=== PATIENT | female | born 1960 | race Caucasian/White ===

== ENCOUNTER 2024-11-24 11:06 | Emergency (ER) | payer OTHER ==
[2024-11-24 11:20] VITALS: RESP 18
--- NOTE | 2024-11-24 12:07 | XR ---
EXAMINATION TYPE: XR knee complete RT DATE OF EXAM: 11/24/2024 11:59 AM INDICATION: Patient age:Female; 64 years old; Reason for study: swelling; PHH. pain COMPARISON: None. TECHNIQUE: The Right knee(s) was examined in Frontal, lateral and oblique projections. FINDINGS: Post arthroplasty changes with distal femoral and proximal tibial components. Hardware morena ears intact with appropriate alignment. No periprosthetic lucency. No acute fracture or dislocation. Moderate to large size joint effusion. There is a suggested fluid fluid level. Minimal infrapatellar soft tissue swelling. IMPRESSION: 1. No acute osseous pathology. 2. Post arthroplasty changes. Hardware appears intact with appropriate alignment. 3. Moderate to large size joint effusion with fluid fluid level suggested. Could be seen with lipohem arthrosis. [facility], , 11/24/2024 12:05 PM
[2024-11-24] MEDS: KETOROLAC 15 MG/ML 1 ML VIAL IM STA (12:25)
--- NOTE | 2024-11-24 12:25 | ED ---
Extremity Problem HPI - General Chief complaint: Extremity Problem,Nontraumatic Stated complaint: right knee pain Time Seen by Provider: 11/24/24 11:35 Source: patient, family Mode of arrival: ambulatory Limitations: no limitations - History of Present Illness Initial comments: 64-year-old female presenting with chief complaint of right knee pain. Patient has a history of total knee replacement earlier this year. She is currently visiting her daughter from [place]. She was helping with chores around the house yesterday and she noticed when she sat down at the end of the day her knee was sore and swollen. Patient tried icing, elevating, taking ibuprofen but the knee continued to swell and the pain persisted. No redness. No fever. Patient denies any injury or trauma to the area. No chest pain or difficulty breathing. No numbness or tingling. - Related Data Previous Rx's Medication Instructions Recorded HYDROcodone/APAP 7.5-325MG [[place] 1 tab PO Q6HR PRN 3 Days #12 tab 11/24/24 7.5-325] Allergies Allergy/AdvReac Type Severity Reaction Status Date / Time adhesive tape Allergy Rash/Hives Verified 11/24/24 11:21 cephalexin [From Keflex] Allergy Itching Verified 11/24/24 11:21 vancomycin Allergy Rash/Hives Verified 11/24/24 11:21 Review of Systems ROS Statement: Those systems with pertinent positive or pertinent negative responses have been documented in the HPI. ROS Other: All systems not noted in ROS Statement are negative. Past Medical History Past Medical History: Diabetes Mellitus, Hyperlipidemia, Hypertension Additional Past Medical History / Comment(s): DM type 2, sleep apnea History of Any Multi-Drug Resistant Organisms: None Reported Past Surgical History: Joint Replacement Past Psychological History: No Psychological Hx Reported Smoking Status: Never smoker Past Alcohol Use History: None Reported Past Drug Use History: None Reported General Exam Limitations: no limitations General appearance: alert, in no apparent distress Head exam: Present: atraumatic, normocephalic, normal inspection Eye exam: Present: normal appearance, EOMI Neck exam: Present: normal inspection. Absent: meningismus Respiratory exam: Absent: respiratory distress Cardiovascular Exam: Present: regular rate Right Knee exam: Present: tenderness, swelling. Absent: full ROM, deformity Neurovascular tendon exam: Present: no vascular compromise Neurological exam: Present: alert, oriented X3 Psychiatric exam: Present: normal affect, normal mood Skin exam: Present: warm, dry, normal color Course Vital Signs 11/24/24 11/24/24 11:17 14:16 Temperature 98 F 98.5 F Pulse Rate 78 82 Respiratory 18 18 Rate Blood Pressure 178/80 155/84 O2 Sat by Pulse 98 95 Oximetry Medical Decision Making - Medical Decision Making Was pt. sent in by a medical professional or institution (, PA, MATCHER OPERATOR, urgent care, hospital, or custodial...) When possible be specific @ -No Did you speak to anyone other than the patient for history (EMS, parent, family, police, friend...)? What history was obtained from this source @ -Daughter Did you review nursing and triage notes (agree or disagree)? Why? @ -I reviewed and agree with nursing and triage notes Were old charts reviewed (outside hosp., previous admission, EMS record, old EKG, old radiological studies, urgent care reports/EKG's, custodial records)? Report findings @ -No old charts were reviewed Differential Diagnosis (chest pain, altered mental status, abdominal pain women, abdominal pain men, vaginal bleeding, weakness, fever, dyspnea, syncope, headache, dizziness, GI bleed, back pain, seizure, CVA, palpatations, mental health, musculoskeletal)? @ -Differential Musculoskeletal Muscular strain, contusion, ligament sprain, fracture, arthritis, septic arthritis, bursitis, cellulitis, muscle spasm, nerve compression, DVT, arterial occlusion, herpes zoster, electrolyte abnormality, tumor.... This is not meant to be in all inclusive list EKG interpreted by me (3pts min.). @ -As above X-rays interpreted by me (1pt min.). @ -Knee x-ray shows no acute osseous pathology. Post arthroplasty changes. Hardware appears intact with appropriate alignment. Moderate to large sized joint effusion with fluid level suggested. Could be seen with lipohemarthrosis CT interpreted by me (1pt min.). @ -None done U/S interpreted by me (1pt. min.). @ -Ultrasound negative for DVT What testing was considered but not performed or refused? (CT, X-rays, U/S, labs)? Why? @ -None What meds were considered but not given or refused? Why? @ -None Did you discuss the management of the patient with other professionals (professionals i.e. , PA, MATCHER OPERATOR, lab, RT, psych nurse, social research assistant, corrosion control technician, teacher, law enforcement officer, housing case manager)? Give summary @ -No Was smoking cessation discussed for >3mins.? @ -No Was critical care preformed (if so, how long)? @ -No Were there social determinants of health that impacted care today? How? (Homelessness, low income, unemployed, alcoholism, drug addiction, transportation, low edu. Level, literacy, decrease access to med. care, fpc, rehab)? @ -No Was there de-escalation of care discussed even if they declined (Discuss DNR or withdrawal of care, Hospice)? DNR status @ -No What co-morbidities impacted this encounter? (DM, HTN, Smoking, COPD, CAD, Cancer, CVA, ARF, Chemo, Hep., AIDS, mental health diagnosis, sleep apnea, mor bid obesity)? @ -None Was patient admitted / discharged? Hospital course, mention meds given and route, prescriptions, significant lab abnormalities, going to OR and other pertinent info. @ -64-year-old female presenting with chief complaint of knee swelling and pain. She is visiting from out of town. No new injury or trauma. History and physical examination are conducted. The patient is neurovascularly intact. No erythema or excessive warmth of the joint. No fever. Knee x-ray shows no acute osseous abnormality. Ultrasound is negative for DVT. Patient reports improvement after pain medication. Patient is educated on today's findings and supportive management at home. She will need to follow-up with her surgeon. Follow-up with PCP. Report back to ER with any new or worsening symptoms. Discussed return parameters and answered all questions. Patient conveyed verbal understanding and agreed to the plan. I discussed this case in detail with my attending Dr. Valiente Undiagnosed new problem with uncertain prognosis? @ -No Drug Therapy requiring intensive monitoring for toxicity (Heparin, Nitro, Insulin, Cardizem)? @ -No Were any procedures done? @ -No Diagnosis/symptom? @ -Knee effusion Acute, or Chronic, or Acute on Chronic? @ -Acute Uncomplicated (without systemic symptoms) or Complicated (systemic symptoms)? @ -Uncomplicated Side effects of treatment? @ -No Exacerbation, Progression, or Severe Exacerbation? @ -No Poses a threat to life or bodily function? How? (Chest pain, [place], [place], pneumonia, PE, COPD, DKA, ARF, appy, cholecystitis, CVA, Diverticulitis, Homicidal, Suicidal, threat to staff... and all critical care pts) @ -Unlikely Disposition Clinical Impression: Knee effusion Disposition: HOME SELF-CARE Condition: Good Instructions (If sedation given, give patient instructions): Swollen Knee Joint (ED) Additional Instructions: Follow-up with PCP and your surgeon. Report back to ER with any new or worsening symptoms. Take medication as prescribed. Prescriptions: HYDROcodone/APAP 7.5-325MG [[place] 7.5-325] 1 tab PO Q6HR PRN 3 Days #12 tab PRN Reason: Pain Is patient prescribed a controlled substance at d/c from ED?: Yes When asked, does pt state using other controlled substances?: No If prescribed controlled substance>3 days was MAPS reviewed?: Prescribed <3 Days If opioid is for acute pain is fill amount 7 days or less?: Yes Referrals: None,Stated [REFERRING] - 1-2 days Time of Disposition: 13:50
[2024-11-24] MEDS: DEXAMETHASONE SOD PHOSPHATE 10 MG/ML 1 ML VIAL IM STA (12:26)
[2024-11-24] MEDS: HYDROmorphone 0.5 MG/0.5 ML SYRINGE IM STA (12:26)
--- NOTE | 2024-11-24 13:04 | US ---
EXAMINATION TYPE: US venous doppler duplex LE RT DATE OF EXAM: 11/24/2024 12:49 PM COMPARISON: NONE CLINICAL INDICATION: Female, 64 years old with history of swelling; No hx of DVT. Pt does not take bl ood thinners. Swelling started last night. Hx right knee replacement 2023. TECHNIQUE: The lower extremity deep venous system is examined utilizing real time linear array sonog marvin with graded compression, color doppler sonography, and spectral doppler. SIDE PERFORMED: Right FINDINGS: VESSELS IMAGED: Common Femoral Vein Deep Femoral Vein Greater Saphenous Vein * Femoral Vein Popliteal Vein Small Saphenous Vein * Proximal Calf Veins (* superficial vessels) Right Leg: No evidence of DVT. Peroneal veins were not seen. IMPRESSION: No visualized deep venous thrombosis of the right lower extremity however the peroneal veins were not identified. [facility], , 11/24/2024 1:02 PM
[2024-11-24 14:21] VITALS: BP 155/84; PULSE 82; TEMP 98.5
[2024-11-24] MEDS: ACET/COD 300 MG/30 MG STARTER PACK 6 TAB BTL PO STA (14:21)
== END 2024-11-24 14:51 | disposition home or self-care (01) ==
LOC: EC 11:06
DX: M25.461 Effusion, right knee (principal); Z88.1 Allergy status to other antibiotic agents; Z88.8 Allergy status to other drugs, medicaments and biological substances
CPT/HCPCS: 73562; 93971; 99284; 96372; J1100; J1885; J1171